=== PATIENT | female | born 1995 | race Caucasian/White ===

== ENCOUNTER 2019-07-01 06:50 | Day surgery (SDC) | payer OTHER ==
[2019-06-30 09:36] VITALS: BMI 39.9
[2019-07-01] MEDS ORDERED: Phenylephrine 2.5% Ophth Soln 5 ML BOT ONE (07:08)
[2019-07-01] MEDS ORDERED: Famotidine/PF 20 mg/2ml Vial ONE ×2 (07:08→08:09)
[2019-07-01] MEDS ORDERED: Cyclopentolate 1% Opth Drop 2 ML BOT ONE (07:08)
[2019-07-01] MEDS ORDERED: Fentanyl 100 MCG/2 ML VIAL ONE (08:09)
[2019-07-01] MEDS ORDERED: Midazolam HCl 2 mg/2 ml Vial ONE (08:09)
[2019-07-01] MEDS ORDERED: Bupivacaine PF 0.75% SDV 10 ML ONE (12:45)
[2019-07-01] MEDS ORDERED: Ondansetron PF 4 MG/2 ML Vial ONE (12:45)
[2019-07-01] MEDS ORDERED: EPHEDRINE 25 MG/5 ML SYRINGE ONE (12:45)
[2019-07-01] MEDS ORDERED: Lidocaine 4% PF 5 ML AMP ONE (12:45)
[2019-07-01] MEDS ORDERED: Lidocaine 1% PF 5 ML VIAL ONE ×2 (12:45)
[2019-07-01] MEDS ORDERED: CEFAZOLIN 1 GM VIAL ONE (12:45)
[2019-07-01] MEDS ORDERED: Tobramycin/Dexamethasone Ophth Oint 3.5 GM TUBE ONE (12:45)
[2019-07-01] MEDS ORDERED: Triamcinolone 40 MG/ML VIAL ONE (12:45)
[2019-07-01] MEDS ORDERED: PROPOFOL 200 MG/20 ML VIAL ONE (12:45)
[2019-07-01] MEDS ORDERED: Atropine Sulfate 1% Ophth Ointment 3.5 gm Tube ONE (12:45)
[2019-07-01] MEDS ORDERED: Metoclopramide HCl 10 MG/2 ML VIAL ONE (12:45)
--- NOTE | 2019-07-02 01:06 | OP ---
DATE OF PROCEDURE: 07/01/2019 PREOPERATIVE DIAGNOSIS: Rhegmatogenous retinal detachment, right eye. POSTOPERATIVE DIAGNOSIS: Rhegmatogenous retinal detachment, right eye. PROCEDURE PERFORMED: Scleral buckle with cryotherapy, right eye. ANESTHESIA: General endotracheal anesthesia. DESCRIPTION OF PROCEDURE: The patient was taken to the operative suite, where appropriate general endotracheal anesthesia was initiated. The patient was prepped and draped in usual sterile manner for ophthalmic surgery in right eye. Lid speculum was placed in the right eye. A 360 conjunctival peritomy was created by sharp dissection with Maria G scissors. The rectus muscles were looped on 2-0 silk ties. A #41 band was encircled around the eye and positioned, ligated end-to-end superonasally with 3083 sleeve. A 287 WG was then placed underneath the band with endpoint superonasally and inferiorly. The break was identified via indirect ophthalmoscopy, and two spots of cryotherapy were placed over the break. External drain was created at the 9:30 o'clock meridian, and a good drainage of subretinal fluid was obtained. No hemorrhage was noted. Buckle was tightened up, and position was inspected by indirect ophthalmoscopy. Anterior chamber was tapped until the pressure was reduced and at that time, it was noted that the optic nerve was perfused. Retrobulbar Kenalog and subconjunctival Ancef were placed. Additional retrobulbar block was placed, and the conjunctiva was closed with 6-0 plain gut suture. Antibiotic ointment and atropine were placed. The eye was patched and shielded. The patient was awakened and taken to postop recovery unit in good condition, having suffered no immediate perioperative complications. The patient was instructed to keep patch shield on, avoid lifting or bending, position right side down, and followup appointment with Dr. Lau. Job ID: [id number]
== END 2019-07-01 12:10 | disposition home or self-care (01) ==
LOC: SDC 06:50
PROVIDERS: ATTEND Ophthalmology Retina Specialist
PROC: 08QE3ZZ Repair Right Retina, Percutaneous Approach (ICD-10-PCS; principal; 2019-07-01)
PROC: 08U03JZ Supplement of Right Eye with Synthetic Substitute, Percutaneous Approach (ICD-10-PCS; principal; 2019-07-01)
DX: H33.001 Unspecified retinal detachment with retinal break, right eye (principal); E66.9 Obesity, unspecified; Z68.39 Body mass index [BMI] 39.0-39.9, adult
CPT/HCPCS: J0690; J2001; J2250; J2405; J2704; J2765; J3010; J3301; J3490; S0028